=== PATIENT | male | born 1955 | race African-American/Black ===

== ENCOUNTER → 2020-04-16 | Outpatient (CLI) | payer BC ==
--- NOTE | 2020-04-16 10:32 | RAD ---
Examination: Ultrasound popliteal fossa HISTORY: History of right knee pain COMPARISON: None available Findings/ impression: Ultrasound of the right popliteal fossa demonstrates no evidence of fluid collection or popliteal cyst in the popliteal fossa region. Electronically signed by: Stefan Vazquez MD (04/16/2020 10:29 AM) [id number]
--- NOTE | 2020-04-16 11:23 | RAD ---
KNEE RIGHT 3V DATE: 04/16/2020 12:00 AM INDICATION: RIGHT KNEE PAIN. / Spl. Instructions: / History: COMPARISON: None. FINDINGS: Bones: There is no evidence of acute fracture or dislocation. Joints: Mild tricompartmental degenerative changes. There is no joint effusion. Miscellaneous: None. IMPRESSION: No acute osseous abnormality. Mild tricompartmental degenerative changes. Electronically signed by: Randy Lubin MD (04/16/2020 11:20 AM) [id number]
== END ==
LOC: US 09:58
PROVIDERS: ATTEND Family Medicine
DX: M17.11 Unilateral primary osteoarthritis, right knee (principal)
CPT/HCPCS: 73562; 76881